=== PATIENT | female | born 1970 | race Hispanic/Latino ===

== ENCOUNTER 2019-03-22 14:18 | Emergency (ER) | payer SELFPAY ==
[~2019-03-22] VITALS: Ht 154.9 cm; Wt 74.8 kg
--- OUTSIDE RECORDS SUMMARY | 2019-03-22 14:21 | XMS REPORT ---
Author [facility] Address Unknown Phone Unavailable Care Team Providers Care Psychologist Engineering Name Role Phone Unavailable Unavailable Problems This patient has no known problems. Allergies, Adverse Reactions, Alerts This patient has no known allergies or adverse reactions. Medications This patient has no known medications. Encounters Start Date/Time End Date/Time Encounter Type Admission Type Attending [facility] Care Department Encounter ID 2019-05-24 00:00:00 2019-05-24 00:00:00 Outpatient [facility] [id number] 2019-03-30 00:00:00 2019-03-30 00:00:00 Outpatient [facility] [id number] 2019-03-13 08:36:25 2019-03-13 08:36:25 Outpatient [facility] [id number] 2019-03-10 08:43:32 2019-03-10 08:43:32 Outpatient [facility] [id number] 2019-03-01 00:00:00 2019-03-01 00:00:00 Outpatient [facility] [id number] 2019-02-22 10:33:56 2019-02-22 10:33:56 Outpatient [facility] [id number] 2019-02-07 14:05:38 2019-02-07 14:05:38 Outpatient [facility] [id number] 2019-02-06 00:00:00 2019-02-06 00:00:00 Outpatient [facility] [id number] 2019-01-25 15:25:58 2019-01-25 15:25:58 Outpatient [facility] [id number] 2019-01-25 15:10:43 2019-01-25 15:10:43 Outpatient [facility] [id number] 2019-01-20 09:47:44 2019-01-20 09:47:44 Outpatient [facility] [id number] 2019-01-12 08:57:26 2019-01-12 08:57:26 Outpatient [facility] [id number] 2019-01-12 08:37:39 2019-01-12 08:37:39 Outpatient [facility] [id number] 2019-01-12 08:08:00 2019-01-12 08:08:00 Outpatient [facility] [id number] 2019-01-12 07:47:13 2019-01-12 07:47:13 Outpatient [facility] [id number] 2019-01-11 10:16:53 2019-01-11 10:16:53 Outpatient [facility] [id number] 2018-12-23 09:33:28 2018-12-23 09:33:28 Outpatient [facility] [id number] 2018-12-15 09:46:03 2018-12-15 09:46:03 Outpatient [facility] [id number] 2018-11-28 08:27:12 2018-11-28 08:27:12 Outpatient [facility] [id number] 2018-11-28 07:33:17 2018-11-28 07:33:17 Outpatient [facility] [id number] 2018-11-07 09:20:20 2018-11-07 09:20:20 Outpatient [facility] [id number] 2018-11-07 00:00:00 2018-11-07 00:00:00 Outpatient [facility] [id number] 2018-10-28 09:40:39 2018-10-28 09:40:39 Outpatient [facility] [id number] 2018-10-25 12:53:28 2018-10-25 12:53:28 Outpatient [facility] [id number] 2018-10-21 10:38:14 2018-10-21 10:38:14 Outpatient [facility] [id number] 2018-10-21 00:00:00 2018-10-21 00:00:00 Outpatient [facility] [id number] 2018-10-20 22:58:17 2018-10-20 22:58:17 Outpatient [facility] [id number] 2018-10-20 20:09:35 2018-10-20 20:09:35 Emergency [facility] [id number] 2018-10-20 13:19:56 2018-10-20 13:19:56 Outpatient [facility] [id number] 2018-06-13 23:41:23 2018-06-13 23:41:23 Emergency [facility] [id number]
--- OUTSIDE RECORDS SUMMARY | 2019-03-22 14:21 | XMS REPORT ---
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 Conditions or Problems Problem Name Problem Code Onset Date Status Entry Date Provider Comment Standard Description Annotate Otalgia 388.70 Active Estevan Lara MD Otalgia, unspecified Hypertension, essential, uncontrolled 401.9 Active Estevan Lara MD Unspecified essential hypertension Lipoma 214.9 Active Estevan Lara MD Lipoma, unspecified site Obesity Active Hue May MD Obesity, unspecified Vaginal discharge 623.5 Active Hue May MD Leukorrhea, not specified as infective Vaginal itching 698.1 Active Hue May MD Pruritus of genital organs Otitis externa 380.10 Active Estevan Lara MD Infective otitis externa, unspecified Elevated blood pressure ICD-796.2 Inactive Estevan Lara MD Essential hypertension ICD-401.1 Inactive Estevan Lara MD Elevated blood pressure 796.2 Resolved Estevan Lara MD Elevated blood pressure reading without diagnosis of hypertension Essential hypertension 401.1 Resolved Estevan Lara MD Benign essential hypertension Medication List Medication Instructions Start Date Stop Date Generic Name NDC Status Provider Patient Instruction BIO-STATIN ORAL POWDER apply to the vulva an dmons 2-3 times a day for 1 week and repeat if necessary NYSTATIN 97787905281 Active Linda Mitchell MD Active HYDROCHLOROTHIAZIDE 25 MG ORAL TABLET 1 by mouth every day HYDROCHLOROTHIAZIDE 39185980702 Active Estevan Lara MD Active AMLODIPINE BESYLATE 10 MG ORAL TABLET 1 tab by mouth daily AMLODIPINE BESYLATE 33628339010 Active Estevan Lara MD Active LISINOPRIL 40 MG ORAL TABLET 1 by mouth every day LISINOPRIL 21179408084 Active Estevan Lara MD Active DIFLUCAN 150 MG ORAL TABLET 1 po x 1 dose then repeat in 7 days, then repeat again in 14 days FLUCONAZOLE 77419298575 Active Linda Mitchell MD Active ATENOLOL 100 MG ORAL TABLET 1 by mouth every day ATENOLOL 30192254583 Active Estevan Lara MD Active CORTISPORIN 3.5-35524-6 OTIC SOLUTION 4 drops in affected ear QID [id number] Active Estevan Lara MD Active Vital Signs Date Name Value Unit Range Description blood pressure, diastolic, second observation 82 mm[Hg] BP tang blood pressure, diastolic 82 mm[Hg] BP tang blood pressure, systolic, second observation 182 mm[Hg] BP sys blood pressure, systolic 169 mm[Hg] BP sys height E&M 64 [in_us] Bdy height pulse rate E&M 83 /min Heart rate respiratory rate E&M 18 /min Resp rate temperature E&M 98.2 [degF] Body temperature weight E&M 181.13 [lb_av] Weight Measured blood pressure, diastolic, second observation 107 mm[Hg] BP tang blood pressure, diastolic 105 mm[Hg] BP tang blood pressure, systolic, second observation 171 mm[Hg] BP sys blood pressure, systolic 177 mm[Hg] BP sys height E&M 64 [in_us] Bdy height pulse rate E&M 97 /min Heart rate respiratory rate E&M 18 /min Resp rate temperature E&M 98.0 [degF] Body temperature weight E&M 180.38 [lb_av] Weight Measured blood pressure, diastolic 96 mm[Hg] BP tang blood pressure, systolic 196 mm[Hg] BP sys height E&M 64 [in_us] Bdy height pulse rate E&M 74 /min Heart rate respiratory rate E&M 17 /min Resp rate temperature E&M 97.9 [degF] Body temperature weight E&M 180.38 [lb_av] Weight Measured blood pressure, diastolic 84 mm[Hg] BP tang blood pressure, systolic 168 mm[Hg] BP sys height E&M 64 [in_us] Bdy height pulse rate E&M 98 /min Heart rate respiratory rate E&M 18 /min Resp rate temperature E&M 98.1 [degF] Body temperature weight E&M 182 [lb_av] Weight Measured blood pressure, diastolic 87 mm[Hg] BP tang blood pressure, systolic 155 mm[Hg] BP sys height E&M 64 [in_us] Bdy height pulse rate E&M 72 /min Heart rate respiratory rate E&M 18 /min Resp rate temperature E&M 98.4 [degF] Body temperature weight E&M 181.38 [lb_av] Weight Measured blood pressure, diastolic 88 mm[Hg] BP tang blood pressure, systolic 163 mm[Hg] BP sys height E&M 64 [in_us] Bdy height pulse rate E&M 84 /min Heart rate respiratory rate E&M 18 /min Resp rate temperature E&M 98.4 [degF] Body temperature weight E&M 180.13 [lb_av] Weight Measured blood pressure, diastolic 80 mm[Hg] BP tang blood pressure, systolic 156 mm[Hg] BP sys height E&M 64 [in_us] Bdy height pulse rate E&M 77 /min Heart rate respiratory rate E&M 17 /min Resp rate temperature E&M 98.2 [degF] Body temperature weight E&M 182.13 [lb_av] Weight Measured blood pressure, diastolic 115 mm[Hg] BP tang blood pressure, systolic 198 mm[Hg] BP sys height E&M 64 [in_us] Bdy height pulse rate E&M 95 /min Heart rate respiratory rate E&M 18 /min Resp rate temperature E&M 98.4 [degF] Body temperature weight E&M 180.38 [lb_av] Weight Measured Diagnostic Results Date Name Value Unit Range Description Lab Report: Vaginitis/Vaginosis, DNA Probe - Urinalysis trichomonas vaginalis, urine Negative Negative Lab Report: Vaginitis/Vaginosis, DNA Probe, Ct, Ng, Trich vag by SABINO - Microbiology Neisseria gonorrhoeae DNA probe Negative Negative Lab Report: Vaginitis/Vaginosis, DNA Probe, Ct, Ng, Trich vag by SABINO - Lab chlamydia DNA probe Negative Negative Encounters Date Encounter Provider Code Facility 10:30:45 PERSONAL ASSISTANT Est Patient Exp Problem - 28898 Estevan Lara MD CPT-12697 [facility] 16:43:39 PERSONAL ASSISTANT Est Patient Exp Problem - 54821 Estevan Lara MD CPT-33023 [facility] 15:15:15 PERSONAL ASSISTANT Est Patient Exp Problem - 03141 Linda Mitchell MD CPT-45032 [facility] 10:45:30 CDT Est Patient Exp Problem - 45394 Estevan Lara MD CPT-18861 [facility] 11:01:16 CDT Est Patient Exp Problem - 77406 Estevan Lara MD CPT-12148 [facility] 11:58:55 CDT Est Patient Exp Problem - 64440 Estevan Lara MD CPT-10825 [facility] 15:29:45 CDT Est Patient Problem Focus - 31465 Hue May MD CPT-86576 [facility] 14:52:19 CDT New Patient Detailed - 17419 Estevan Lara MD CPT-75453 [facility]
--- OUTSIDE RECORDS SUMMARY | 2019-03-22 14:21 | XMS REPORT | Clinical Summary ---
Author Author [facility] Organization [facility] Address Unknown Phone Unavailable Care Team Providers Care Insurance Service Representative Name Role Phone Fransisco Jackson MD PCP Allergies No Known Allergies Medications End Date Status Medication Sig Dispensed Refills Start Date Active NEXIUM 40 MG take 1 30 2 CAPIndications: Acid capsule 7 reflux, Abdominal pain, (40mg) by epigastric oral route once daily Active metoclopramide (REGLAN) Take 1 tablet 120 tablet 0 10 mg tabletIndications: by mouth 4 2 Headache(784.0) times daily as needed (headache). Active blood glucose Use as 1 Kit 0 meterIndications: Chest directed.. 8 pain in adult Active lancets 28 Use 2 times 100 Each 1 gaugeIndications: Chest weekly as 8 pain in adult directed. Active blood glucose test 2 times 50 Each 3 stripsIndications: Chest weekly Use 2 8 pain in adult times weekly (once per day on Mon,Thurs) to test blood sugar. Active atorvastatin (LIPITOR) 10 Take 1 tablet 90 tablet 3 mg tabletIndications: by mouth at 8 Chest pain in adult bedtime nightly. Active metFORMIN (GLUCOPHAGE) Take 1 tablet 180 tablet 3 1,000 mg by mouth 2 8 tabletIndications: Type 2 times daily diabetes mellitus with (with meals). complication, without long-term current use of insulin Active metoprolol tartrate Take 1 tablet 180 tablet 1 (LOPRESSOR) 25 mg by mouth 2 9 tabletIndications: times daily. Essential hypertension, benign Active lisinopril (ZESTRIL) 40 Take 1 tablet 90 tablet 1 mg tabletIndications: by mouth 9 Essential hypertension, daily. benign Active fenofibrate Take 1 tablet 90 tablet 1 nanocrystallized (TRICOR) by mouth 9 48 mg tabletIndications: daily. Dyslipidemia Active pioglitazone (ACTOS) 45 Take 1 tablet 90 tablet 1 mg tabletIndications: by mouth 9 Uncontrolled type 2 daily. diabetes mellitus with hyperglycemia Active verapamil (CALAN) 80 mg Take 1 tablet 90 tablet 0 tabletIndications: by mouth 3 9 Chronic cluster headache, times daily. not intractable Active SUMAtriptan (IMITREX) 20 Use 1 Bradley 12 Each 0 mg/actuation nasal in left 9 sprayIndications: Chronic nostril as cluster headache, not needed for intractable Migraine May repeat x 1 dose after 2 hours if migraine persists; not to exceed 2 sprays in 24 hours.. 06/14/2018 Discontinued acetaminophen-codeine Take 1 tablet 0 (TYLENOL #3) 300-30 mg by mouth per tablet every 4 hours as needed. 01/11/2019 Discontinued metoprolol (TOPROL XL) 50 Take 50 mg by 0 mg extended release mouth daily. tablet 06/24/2018 amoxicillin-clavulanate Take 1 tablet 20 tablet 0 (AUGMENTIN) 500-125 mg by mouth 8 per tabletIndications: every 12 Left ear pain hours for 10 days. 06/24/2018 traMADol (ULTRAM) 50 mg Take 1 tablet 30 tablet 0 tabletIndications: Left by mouth 8 ear pain every 8 hours as needed for up to 10 days for Pain. 11/07/2018 Discontinued lisinopril (ZESTRIL) 40 Take 1 tablet 90 tablet 0 mg tabletIndications: by mouth 8 Chest pain in adult daily. 11/07/2018 Discontinued amLODIPine (NORVASC) 10 Take 1 tablet 90 tablet 0 mg tabletIndications: by mouth 8 Chest pain in adult daily. 11/07/2018 Discontinued atorvastatin (LIPITOR) 10 Take 1 tablet 90 tablet 0 201 mg tabletIndications: by mouth at 8 Chest pain in adult bedtime nightly. 01/11/2019 Discontinued amLODIPine (NORVASC) 10 Take 1 tablet 90 tablet 3 mg tabletIndications: by mouth 8 Chest pain in adult daily. 11/28/2018 Discontinued lisinopril (ZESTRIL) 40 Take 1.5 135 tablet 3 11/07/201 mg tabletIndications: tablets by 8 Hypertension, unspecified mouth daily. type 01/11/2019 Discontinued lisinopril (ZESTRIL) 40 Take 2 180 tablet 3 201 mg tabletIndications: tablets by 9 Hypertension, unspecified mouth daily. type 01/25/2019 Discontinued amLODIPine (NORVASC) 10 Take 1 tablet 90 tablet 1 mg tabletIndications: by mouth 9 Essential hypertension, daily. benign 01/11/2019 tropicamide (MYDRIACYL) Instill 1 15 mL 0 0.5 % ophthalmic Drop in each 9 solutionIndications: eye once as Uncontrolled type 2 needed for up diabetes mellitus with to 1 dose hyperglycemia (for poor retina scan image). 01/25/2019 Discontinued carBAMazepine (TEGRETOL) Take 1 tablet 120 tablet 0 200 mg tabletIndications: by mouth 2 9 Neuralgic facial pain times daily. 01/30/2019 predniSONE (DELTASONE) 50 Take 1 tablet 5 tablet 0 01/25/201 mg tabletIndications: by mouth 9 Chronic cluster headache, daily for 5 not intractable days. 01/27/2019 Discontinued SUMAtriptan (IMITREX) 20 Use 1 Bradley 12 Each 0 01/25/201 mg/actuation nasal in left 9 sprayIndications: Chronic nostril as cluster headache, not needed for intractable Migraine. Active Problems Problem Noted Date Weight loss 05/15/2015 Chest pain 09/17/2012 Headache(784.0) 09/17/2012 Hypertension 09/17/2012 Acid reflux 02/16/2007 Periumbilical abdominal pain 02/16/2007 Left ear pain Middle ear effusion, left Left facial pain SOB (shortness of breath) Type 2 diabetes mellitus without complication, without long-term current use of insulin Hyperlipidemia Resolved Problems Problem Noted Date Resolved Date Chest pain in adult 10/20/2018 11/07/2018 Encounters Care Team Description Date Type Specialty Fransisco Jackson MD Uncontrolled type 2 diabetes mellitus with hyperglycemia; Dyslipidemia 03/13/2019 Lab Appointment Aníbal Dash RN Disease Management F/U 03/13/2019 Telephone Patient Education SilberTre jamil MD Lassinger, Brian K, PA Mass of subcutaneous tissue of back (Primary Dx) 03/10/2019 Office Visit General Surgery Alannah Hess NP Type 2 diabetes mellitus with complication, without long- term current use of insulin (Primary Dx); HTN, goal below 130/80; Hyperlipidemia, unspecified hyperlipidemia type; Chest pain, unspecified type; Cluster headache, not intractable, unspecified chronicity pattern 02/22/2019 Office Visit Cardiology Elizabeth Jenkins Interpretation 02/22/2019 Telephone 02/22/2019 Travel Amadou Lofton MD Neuralgia (Primary Dx) 02/07/2019 Office Visit Ent-Otolaryngology Lucinda Brady NP Chronic cluster headache, not intractable 01/27/2019 Orders Only [facility] Fransisco Jackson MD Chronic cluster headache, not intractable (Primary Dx); Hypertension, uncontrolled 01/25/2019 Office Visit [facility] Fransisco Jackson MD Maldonado, Selena Renee 01/25/2019 Nurse Only Fransisco Jackson MD Prideaux, Melissa 01/20/2019 Nutrition Nutrition 01/20/2019 Travel Aníbal Matt RN 01/16/2019 Patient Patient Education Education Fransisco Jackson MD Uncontrolled type 2 diabetes mellitus with hyperglycemia 01/12/2019 Ancillary Ophthalmology Procedure Fransisco Jackson MD Chronic TMJ pain 01/12/2019 Ancillary Radiology Procedure Fransisco Jackson MD Preventative health care 01/12/2019 Ancillary Radiology Procedure Aníbal Matt, internet cafe manager F/U 01/12/2019 Telephone Patient Education Fransisco Jackson MD Uncontrolled type 2 diabetes mellitus with hyperglycemia (Primary Dx); Preventative health care; Dyslipidemia; Chronic TMJ pain; Essential hypertension, benign; Neuralgic facial pain 01/11/2019 Office Visit Family Practice Fransisco Jackson MD Uncontrolled type 2 diabetes mellitus with hyperglycemia 01/11/2019 Orders Only [facility] Tre Haines MD Lassinger, Brian K, PA Mass of subcutaneous tissue of back (Primary Dx) 12/23/2018 Office Visit General Surgery 12/23/2018 Travel Mass of subcutaneous tissue of back 12/15/2018 Ancillary Radiology Procedure 12/15/2018 Travel Alannah Hess NP Chest pain, unspecified type (Primary Dx); SOB (shortness of breath); Hypertension, unspecified type; Hyperlipidemia, unspecified hyperlipidemia type; Type 2 diabetes mellitus with complication, without long-term current use of insulin 11/28/2018 Office Visit Cardiology Alannah Hess NP Matthew Whitingila 11/28/2018 Hospital Cardiology Encounter Aníbal Matt RN Appointment Related Questions 11/23/2018 Telephone Patient Education Nydia Felix RNinternet cafe manager F/U 11/17/2018 Telephone Patient Education Alannah Hess NP Chest pain, unspecified type (Primary Dx); SOB (shortness of breath); Hypertension, unspecified type; Hyperlipidemia, unspecified hyperlipidemia type; Type 2 diabetes mellitus with complication, without long-term current use of insulin; Chest pain in adult 11/07/2018 Office Visit Cardiology Ben Trinh Interpretation 11/07/2018 Telephone Tre Haines MD Lassinger, Brian K, PA Mass of subcutaneous tissue of back (Primary Dx) 10/28/2018 Office Visit General Surgery 10/28/2018 Travel Darrel Chauhan MD Appling, Walter D, MD TMJ (temporomandibular joint disorder) (Primary Dx) 10/25/2018 Office Visit Ent-Otolaryngology 10/25/2018 Travel Armand Whitten I Interpretation 10/21/2018 Telephone David Holguin MD Chest pain in adult (Primary Dx) 10/20/2018 Emergency Emergency Medicine - 10/21/2018 Amadou Lofton MD Hypertension, unspecified type (Primary Dx) 10/20/2018 Office Visit Ent-Otolaryngology Randell Jalloh MD Left ear pain (Primary Dx); Middle ear effusion, left; Left facial pain 06/13/2018 Emergency Emergency Medicine - 06/14/2018 after 03/21/2018 Family History Medical History Relation Name Comments Hypertension Mother Relation Name Status Comments Father Alive Mother Alive Social History Date Tobacco Use Types Packs/Day Years Used Never Smoker Smokeless Tobacco: Never Used Tobacco Cessation: Counseling Given: No Alcohol Use Drinks/Week oz/Week Comments No Sex Assigned at Date Recorded Not on file Industry Job Start Date Occupation Not on file Not on file Not on file Travel End Travel History Travel Start No recent travel history available. Last Filed Vital Signs Time Taken Vital Sign Reading 03/10/2019 8:44 AM CDT Blood Pressure 156/81 03/10/2019 8:44 AM CDT Pulse 86 03/10/2019 8:44 AM CDT Temperature 37 C (98.6 F) 03/10/2019 8:44 AM CDT Respiratory Rate 18 02/22/2019 10:35 AM CDT Oxygen Saturation 98% - Inhaled Oxygen - Concentration 03/10/2019 8:44 AM CDT Weight 81.2 kg (179 lb) 03/10/2019 8:44 AM CDT Height 160 cm (5' 3") 03/10/2019 8:44 AM CDT Body Mass Index 31.71 Plan of Treatment Care Team Description Date Type Specialty Fransisco Jackson MD [address] [place] [address] [place] [id number] [phone] results 03/30/2019 Office Visit Family Practice Alannah Hess, [employer] [address] [place] [address] [phone] 05/24/2019 Office Visit Cardiology Health Maintenance Due Date Last Done Comments IMM Influenza Seasonal 08/22/2019 Oct to January (>/=19 yrs) DM Foot Exam (Yearly) 01/11/2020 01/11/2019 Breast Cancer Scrn 01/12/2020 01/12/2019 (Yearly) DM Retinal Exam (Yearly) 01/12/2020 01/12/2019 DM HGBA1C (Yearly) 03/13/2020 03/13/2019, 10/21/2018 Cervical Cancer Scrn (3 01/05/2021 01/05/2018 (Previously completed - Yrs) External) Goals Goal Patient Associated Recent Progress Patient-Stat Author Goal Type Problems ed? Increase Physical Activity Lifestyle No Aníbal Matt, MAX Home Glucose Monitoring Self No Fransisco Jackson, management HBA1C < 7 Treatment No Fransisco Jackson MD Procedures Comments Procedure Name Priority Date/Time Associated Diagnosis VIT D, 25-HYDROXY Routine 03/13/2019 Uncontrolled type 2 8:28 AM CDT diabetes mellitus with hyperglycemia LIPID PROFILE Routine 03/13/2019 Uncontrolled type 2 8:28 AM CDT diabetes mellitus with hyperglycemia Dyslipidemia HEMOGLOBIN A1C Routine 03/13/2019 Uncontrolled type 2 8:28 AM CDT diabetes mellitus with hyperglycemia COMPREHENSIVE METABOLIC Routine 03/13/2019 Uncontrolled type 2 PANEL(DBIL NOT INCLUDED) 8:28 AM CDT diabetes mellitus with hyperglycemia CBC/DIFF Routine 03/13/2019 Uncontrolled type 2 8:28 AM CDT diabetes mellitus with hyperglycemia OXYGEN THERAPY IN CLINIC Routine 01/25/2019 Chronic cluster headache, 3:59 PM BIOMATHEMATICIAN not intractable OPHTHALMOLOGY RETINAL Routine 01/12/2019 Uncontrolled type 2 SCAN 10:07 AM BIOMATHEMATICIAN diabetes mellitus with hyperglycemia BMP POC Routine 01/12/2019 9:16 AM BIOMATHEMATICIAN XRAY TEMPORALMANDIBULAR Routine 01/12/2019 Chronic TMJ pain BILATERAL 8:28 AM BIOMATHEMATICIAN MAMMOGRAM BILAT SCREEN Routine 01/12/2019 health care DIGITAL 8:20 AM BIOMATHEMATICIAN MICROALBUM, URINE Routine 01/12/2019 Uncontrolled type 2 7:52 AM BIOMATHEMATICIAN diabetes mellitus with hyperglycemia DIABETIC FOOT EXAM Routine 01/11/2019 Uncontrolled type 2 11:36 AM BIOMATHEMATICIAN diabetes mellitus with hyperglycemia U/S EXTREMITY Routine 12/15/2018 Mass of subcutaneous NONVASCULAR, LIMITED 11:38 AM BIOMATHEMATICIAN tissue of back TRANSTHORACIC ECHO (TTE) Routine 11/28/2018 Chest pain, unspecified 7:38 AM BIOMATHEMATICIAN type SOB (shortness of breath) MYOCARDIAL PERFUSION Routine 10/21/2018 SPECT REST/STRES SINGLE 1:20 PM BIOMATHEMATICIAN TREADMILL STRESS-TRACING 10/21/2018 ONLY 11:18 AM BIOMATHEMATICIAN POCT URINE DIPSTICK - Routine 10/21/2018 10:14 AM BIOMATHEMATICIAN TSH Routine 10/21/2018 9:45 AM BIOMATHEMATICIAN GLUCOSE POC Routine 10/21/2018 9:25 AM BIOMATHEMATICIAN LIPID PROFILE STAT 10/21/2018 12:41 AM BIOMATHEMATICIAN LIVER PROFILE STAT 10/21/2018 12:41 AM BIOMATHEMATICIAN HEMOGLOBIN A1C STAT 10/21/2018 12:41 AM BIOMATHEMATICIAN XRAY CHEST 2 VIEWS STAT 10/20/2018 Chest pain in adult 8:13 PM BIOMATHEMATICIAN TROPONIN I POC Routine 10/20/2018 7:46 PM BIOMATHEMATICIAN 12 LEAD EKG Routine 10/20/2018 7:42 PM BIOMATHEMATICIAN 12 LEAD EKG Routine 10/20/2018 5:03 PM BIOMATHEMATICIAN TROPONIN I POC Routine 10/20/2018 5:02 PM BIOMATHEMATICIAN HIV-1/HIV-2 ROUTINE STAT 10/20/2018 SCREENING 2:30 PM BIOMATHEMATICIAN CBC/DIFF STAT 10/20/2018 2:30 PM BIOMATHEMATICIAN BMP POC Routine 10/20/2018 2:25 PM BIOMATHEMATICIAN TROPONIN I POC Routine 10/20/2018 2:22 PM BIOMATHEMATICIAN 12 LEAD EKG Routine 10/20/2018 2:08 PM BIOMATHEMATICIAN after 03/21/2018 Results * VIT D, 25-HYDROXY (03/13/2019 8:28 AM CDT) Vit D, 10.3 (L) 30 - 100 ng/mL [facility] 25-Hydroxy Comment: IMMUNOLOGY Vitamin D deficiency has been defined by the [place] [employer] and Endocrine Society guideline as a level of serum 25-OH Vitamin D less than 20 ng/mL. The Endocrine Society further defines Vitamin D insufficiency as a level between 21 and 29 ng/mL and sufficiency as a level between 30 and 100 ng/mL. Performing Organization Address City/State/Zipcode Phone Number [facility] IMMUNOLOGY * HEMOGLOBIN A1C (03/13/2019 8:28 AM CDT) Only the most recent of 2 results within the time period is included. Hemoglobin A1c 12.3 (H) 4.3 - 6.1 % [facility] IMMUNOLOGY Est Average 306.3 mg/dL [facility] Gluc IMMUNOLOGY Specimen Blood Performing Organization Address [facility] Phone Number [facility] IMMUNOLOGY * COMPREHENSIVE METABOLIC PANEL(DBIL NOT INCLUDED) (03/13/2019 8:28 AM CDT) Albumin 4.1 3.7 - 5.3 g/dL [facility] 1 Calcium 9.1 8.6 - 10.3 mg/dL [facility] 1 CO2 27 21 - 31 mmol/L [facility] 1 Chloride 101 98 - 107 mmol/L [facility] 1 Creatinine 0.40 (L) 0.6 - 1.2 mg/dL [facility] 1 Glucose 297 (H) 70 - 110 mg/dL [facility] 1 Alk Phos 122 (H) 34 - 104 U/L [facility] 1 Potassium 4.2 3.5 - 5.1 mmol/L [facility] 1 Sodium 137 136 - 145 mmol/L [facility] 1 ALT 22 7 - 52 U/L [facility] 1 AST 13 13 - 39 U/L [facility] 1 Urea Nitrogen 13 7 - 25 mg/dL [facility] 1 T Bilirubin 0.9 0.2 - 1.2 mg/dL [facility] 1 T Protein 6.6 6.0 - 8.3 g/dL [facility] 1 GFR, Estimated >60 mL/min/1.73 m2 [facility] 1 GFR, Estim, >60 mL/min/1.73 m2 [facility] Afr-Am 1 Anion Gap 9 [facility] 1 Specimen Blood Performing Organization Address [facility] Phone Number [facility] * LIPID PROFILE (03/13/2019 8:28 AM CDT) Only the most recent of 2 results within the time period is included. Cholesterol 251 mg/dL [facility] Comment: 1 REFERENCE RANGE: Desirable: <200 mg/dL Borderline: 200-240 mg/dL High Risk: >240 mg/dL Triglyceride 132 <150 mg/dL [facility] Comment: 1 REFERENCE RANGE: Normal: <150 mg/dL Borderline High: 150-199 mg/dL High: 200-499 mg/dL Very High: >yv=182 mg/dL HDL 48 mg/dL [facility] Comment: 1 Increased CHD risk: <40 mg/dL Decreased CHD risk: >60 mg/dL LDL 177 mg/dL [facility] Comment: 1 REFERENCE RANGE: Optimal: <100 mg/dL Near Optimal: 100-129 mg/dL Borderline High: 130-159 mg/dL High: 160-189 mg/dL Very High: >he=942 mg/dL Specimen Blood Performing Organization Address City/State/Zipcode Phone Number [facility] * CBC/DIFF (03/13/2019 8:28 AM CDT) Only the most recent of 2 results within the time period is included. WBC 4.9 4.5 - 11.0 K/uL [facility] 2 RBC 4.88 4.20 - 5.40 M/uL [facility] 2 Hemoglobin 14.3 12.0 - 16.0 g/dL [facility] 2 Hematocrit 44.8 37.0 - 47.0 % [facility] 2 MCV 92 82 - 92 fL [facility] 2 MCH 29.3 27.0 - 32.0 pg [facility] 2 MCHC 31.9 (L) 32.0 - 36.0 g/dL [facility] 2 RDW 42.2 36.4 - 46.3 fL [facility] 2 Platelet 219 150 - 400 K/uL [facility] 2 Mean Platelet 11.8 9.4 - 12.4 fL [facility] Volume 2 Percent NRBC 0.0 [facility] 2 Absolute NRBC 0.00 [facility] 2 Neutrophil 55.2 34.0 - 70.0 % [facility] 2 Lymphocyte 36.5 20.0 - 50.0 % [facility] 2 Monocyte 5.7 5.0 - 12.0 % [facility] 2 Eosinophil 1.4 0.7 - 5.0 % [facility] 2 Basophil 0.4 0.1 - 1.2 % [facility] 2 Pct Immat Gran 0.8 (H) 0.0 - 0.5 [facility] 2 Neutrophil, Abs 2.69 1.56 - 6.13 K/uL [facility] 2 Lymphocyte, Abs 1.78 1.18 - 3.74 K/uL [facility] 2 Monocyte, Abs 0.28 0.24 - 0.36 K/uL [facility] 2 Eosinophil, Abs 0.07 0.04 - 0.36 K/uL [facility] 2 Basophil, Abs 0.02 0.01 - 0.08 K/uL [facility] 2 Absol Immat 0.04 (H) 0.00 - 0.03 K/uL [facility] Gran 2 Specimen Blood Performing Organization Address City/[facility] Phone [facility] * OPHTHALMOLOGY RETINAL SCAN (01/12/2019 10:07 AM BIOMATHEMATICIAN) RETINAL NORMAL IRIS SCAN-FINAL RESULT Right Diabetic None IRIS Retinopathy Right Macular None IRIS Edema Right Other None IRIS Suspected Conditions Right Image Gradeable Image IRIS Quality Left Diabetic None IRIS Retinopathy Left Macular None IRIS Edema Left Other None IRIS Suspected Conditions Left Image Gradeable Image IRIS Quality Narrative Performed At Retinal Study Result for MARK REDD MARIA, agnieszka age not available, 1970 (: F, ) presented to [facility] on 01-12-2019 for a retinal imaging study of the left and right eyes. Based on the findings of the study, the following is recommended for MARK REDD Normal Scan: Please advise the patient to return for another scan in 1 year. Interpreting Provider's Comments:No comments provided Right Eye Findings: Normal Result.Negative for Diabetic Retinopathy. Left Eye Findings: Normal Result.Negative for Diabetic Retinopathy. This result was electronically signed by Ryan Arias MD, , Taxonomy: [id number] on 01-12-2019 04:07:18 [facility] time. NOTE:Any pathology noted on this diabetic retinal evaluation should be confirmed by an appropriate ophthalmic examination. Performing Organization Address City/[facility] Phone Number IRIS * BMP POC (01/12/2019 9:16 AM BIOMATHEMATICIAN) TCO2 POC 23 21 - 32 mmol/L [facility] Chloride POC 104 98 - 107 mmol/L [facility] Potassium POC 3.9 3.50 - 5.10 mmol/L [facility] Sodium POC 140 136 - 145 mmol/L [facility] Glucose POC 398 (H) 74 - 106 mg/dL [facility] Urea Nitrogen 15 7 - 18 mg/dL [facility] POC Creatinine POC 0.4 (L) 0.6 - 1.3 mg/dL [facility] Ionized Calcium 1.20 1.15 - 1.29 mmol/L [facility] POC GFR, Estimated >60 mL/min/1.73 m2 [facility] GFR, Estim, >60 mL/min/1.73 m2 [facility] Afr-Am Performing Organization Address [facility] Phone Number [facility] * XRAY TEMPORALMANDIBULAR BILATERAL (01/12/2019 8:28 AM BIOMATHEMATICIAN) Impressions Performed At IMPRESSION: SMS No acute osseous lesion. Greater subluxation during open mouth imaging than expected Signed By: Dominik Ledesma MD, 01/12/2019 8:42 AM Narrative Performed At Temporal mandibular joint SMS HISTORY:lt TMJ pain COMPARISON: None DISCUSSION: No fracture or malalignment. No TMJ arthrosis. Greater subluxation during open mouth imaging than expected. The visualized soft tissues appear unremarkable. Procedure Note Interface, Rad/Mammog In - 01/12/2019 8:47 AM BIOMATHEMATICIAN Temporal mandibular joint HISTORY: lt TMJ pain COMPARISON: None DISCUSSION: No fracture or malalignment. No TMJ arthrosis. Greater subluxation during open mouth imaging than expected. The visualized soft tissues appear unremarkable. IMPRESSION IMPRESSION: No acute osseous lesion. Greater subluxation during open mouth imaging than expected Signed By: Dominik Ledesma MD, 01/12/2019 8:42 AM Performing Organization Address [facility] Phone Number SMS * MAMMOGRAM BILAT SCREEN DIGITAL (01/12/2019 8:20 AM BIOMATHEMATICIAN) Impressions Performed At IMPRESSION: BENIGN SMS There is no mammographic evidence of malignancy. A 1 year screening mammogram is recommended. I have reviewed the study and agree with the findings in the report. This document has been electronically signed. Radha albrecht,daya/penrad:01/12/2019 09:31:00 Finishing Pan Operator: Sang Childs Sr. Account Solutions Analyst, [facility] letter sent: Benign Exam Mammogram BI-RADS: 2 Benign G0202 z12.31 Narrative Performed At #[id number] - MAMMOGRAM BILAT SCREEN DIGITAL SMS BILATERAL DIGITAL SCREENING MAMMOGRAM WITH CAD: 01/12/2019 CLINICAL: Screening for malignancy. No prior exams were available for comparison. There are scattered fibroglandular elements in both breasts that could obscure a lesion on mammography. Current study was also evaluated with a Computer Aided Detection (CAD) system. There are benign calcifications in both breasts. No significant masses, calcifications, or other findings are seen in either breast. Procedure Note Interface, Rad/Mammog In - 01/12/2019 9:58 AM BIOMATHEMATICIAN #[id number] - MAMMOGRAM BILAT SCREEN DIGITAL BILATERAL DIGITAL SCREENING MAMMOGRAM WITH CAD: 01/12/2019 CLINICAL: Screening for malignancy. No prior exams were available for comparison. There are scattered fibroglandular elements in both breasts that could obscure a lesion on mammography. Current study was also evaluated with a Computer Aided Detection (CAD) system. There are benign calcifications in both breasts. No significant masses, calcifications, or other findings are seen in either breast. IMPRESSION IMPRESSION: BENIGN There is no mammographic evidence of malignancy. A 1 year screening mammogram is recommended. I have reviewed the study and agree with the findings in the report. This document has been electronically signed. Radha albrecht,/penrad:01/12/2019 09:31:00 Finishing Pan Operator: Sang Childs Sr. Account Solutions Analyst, [facility] letter sent: Benign Exam Mammogram BI-RADS: 2 Benign G0202 z12.31 Performing Organization Address City/State[facility] Phone Number SMS * MICROALBUM, URINE (01/12/2019 7:52 AM BIOMATHEMATICIAN) Microalbum, <0.7 0.0 - 29.0 mg/dL [facility] Random 1 Creatinine, Ur 25.7 20 - 320 mg/dL [facility] 1 Urine Unable to calculate, 0 - 29 mg/g UCR [facility] Microalbumin parameters incomplete 3 Comment: To minimize intra-individual variation, analysis of three random urine samples collected over the course of a week is recommended. Performing Organization Address City/State[facility] Phone Number [facility] 1 [facility] 3 * DIABETIC FOOT EXAM (01/11/2019 11:36 AM BIOMATHEMATICIAN) Narrative Performed At Fransisco Jackson MD 01/11/2019 11:42 AM Diabetic Foot Exam was performed at 01/11/2019 11:40 AM.Right foot sensation is normal, right foot pulses are normal, right foot appearance is normal.Left foot sensation is normal,left foot pulses are normal, left foot appearance is normal. * U/S EXTREMITY NONVASCULAR, LIMITED (12/15/2018 11:38 AM BIOMATHEMATICIAN) Impressions Performed At IMPRESSION: SMS Subcutaneous lipoma or focal fat infarction in the area of clinical concern. Signed By: Taylor Larkin, 12/15/2018 11:41 AM Narrative Performed At HISTORY: subcutaneous mass on the left lateral back/flank located a few SMS cm's inferior to her incisional scar in that same area TECHNIQUE: Directed sonographic interrogation to the left lateral back in the area of clinical concern was performed. Multiple grayscale and color Doppler images were obtained. COMPARISON: CT abdomen/pelvis 05/15/2015. FINDINGS: These images show subcutaneous fat and musculature in a normal distribution. Mildly hyperechoic soft tissue mass measures 4 x 5 x 6 mm. No calcifications. No increased vascularity on color Doppler interrogation.No hernia. No foreign bodies identified. Procedure Note Interface, Rad/Mammog In - 12/15/2018 11:46 AM BIOMATHEMATICIAN HISTORY: subcutaneous mass on the left lateral back/flank located a few cm's inferior to her incisional scar in that same area TECHNIQUE: Directed sonographic interrogation to the left lateral back in the area of clinical concern was performed. Multiple grayscale and color Doppler images were obtained. COMPARISON: CT abdomen/pelvis 05/15/2015. FINDINGS: These images show subcutaneous fat and musculature in a normal distribution. Mildly hyperechoic soft tissue mass measures 4 x 5 x 6 mm. No calcifications. No increased vascularity on color Doppler interrogation. No hernia. No foreign bodies identified. IMPRESSION IMPRESSION: Subcutaneous lipoma or focal fat infarction in the area of clinical concern. Signed By: Taylor Larkin, 12/15/2018 11:41 AM Performing Organization Address City/State/Zipcode Phone Number SMS * TRANSTHORACIC ECHO (TTE) (11/28/2018 7:38 AM BIOMATHEMATICIAN) TRANSTHORACIC Transthoracic SMS ECHO (TTE) Echo Report MARK REDD Age:48 Gender: F :1970 Exam Date: 11/28/2018 07:38 Exam Location: [facility] Ordering Phys: ALANNAH HESS(hchd/[place] O) Referring Phys:ALANNAH HESS(hchd/[place] O) Reading Phys:Lisa Ponce MD Fellow Phys: Stephenie Peña M.D. Fellow Phys: [employer] Specialist: Courtney Whiting Reason For Exam: Indications: to evaluate for structural abnormality causing CP/SOB despite normal MPI, Dyspnea, unspecified ICD-9 Codes: R06.00 Exam Type: TRANSTHORACIC ECHO (TTE) Procedure CPT:37605 Addtional CPT: Ht (in): 62 BSA: 1.90HR: 70 Rhythm: Sinus rhythm Wt (lb): 176BP: 183/ 70 Technical Quality: Adequate History: MEASUREMENTS Normal ranges based on 95% confidence intervals for adults, some normal patients may fall outside of this range especially when indexing for BSA 2D ECHO LV Diastolic Diameter PLAX4.6 cm 4.2-5.8 (M) / 3.8-5.2 (F) LV Systolic Diameter PLAX 3.9 cm 2.5-4.0 (M) / 2.2-3.5 (F) LV Fractional Shortening PLAX 15.2 % IVS Diastolic Thickness 0.61 cm 0.6-1.0 (M) / 0.6-0.9 (F) LVPW Diastolic Thickness0 .61 cm 0.6-1.0 (M) / 0.6-0.9 (F) LV Relative Wall Thickness0.26 <=0.42 LVOT Diameter 1.7 cm Aortic Root Diameter 2.4 cm LA Systolic Diameter LX 3.1 cm LA Ao Ratio 1.3 LV Diastolic Volume MOD 4C146 cm LV Systolic Volume MOD 4C 57.3 cm LA Volume 84.8 cm LA Volume Index 44.6 cm/m 16 - 34 cm/m RV Diastolic Basal Diameter 3.5 cm 2.5 - 4.1 cm LV Mass by linear certaf12 g LV Mass by linear method Index43.7 g/m Ascending Aorta Diameter2. 8 cm RA Volume 36.4 cm RA Volume Index 19.1 cm/m DOPPLER LVOT Peak Velocity 126 cm/s LVOT Peak Gradient 6.4 mmHg LVOT Mean Velocity 86.2 cm/s LVOT Mean Gradient 3 mmHg LVOT Velocity Time Integral 26.8 cm LVOT Stroke Volume 59.6 cm Mitral E Point Velocity 96.8 cm/s Mitral A Point Velocity 68.9 cm/s Mitral E to A Ratio 1.4 TR Peak Velocity 307 cm/s TR Peak Gradient 37.8 mmHg LV E' Lateral Velocity 11.5 cm/s Mitral E to LV E' Lateral Ratio 8.4 LV E' Septal Velocity 7.2 cm/s Mitral E to LV E' Septal Ratio13.5 FINDINGS Left Ventricle Poor endocardial visualization. Mildleft ventricular dilatation.. Normal left ventricular systolic function. Left ventricular ejection fraction is 65%. Poor endocardial border definition, short axis views sugget inferior wall motion abnormalities, recommend contrast in future. There are no regional wall motion abnormalities , impaired relaxation, mildly elevated LV filling pressures. Right Ventricle Right ventricle not well visualized. Grossly normal right ventricular size and function. Right Atrium Normal right atrial size. Left Atrium Moderate left atrial dilatation. IAS Mitral Valve Mild thickening of the mitral valve. Aortic Valve The aortic valve is trileaflet and opens well. Tricuspid Valve Tricuspid valve not well visualized. Grossly normal tricuspid valve. Incomplete TR jet, but estimated pulmonary artery systolic pressure estimated to be at least 43 mmHg assuming a RA pressure of 5 mmHg. Pulmonic Valve Pulmonic valve not well visualized. Pericardium No pericardial effusion. Aorta Aortic root and proximal ascending aorta not well visualized. Grossly normal size aortic root and proximal ascending aorta. IVC IVC is normal in size. Estimated RA pressure is 5 mmHg. CONCLUSIONS Poor endocardial visualization. Mildleft ventricular dilatation.. Normal left ventricular systolic function. Left ventricular ejection fraction is 65%. Poor endocardial border definition, short axis views sugget inferior wall motion abnormalities, recommend contrast in future. There are no regional wall motion abnormalities , impaired relaxation, mildly elevated LV filling pressures. Moderate left atrial dilatation. Right ventricle not well visualized. Grossly normal right ventricular size and function. . Incomplete TR jet, but estimated pulmonary artery systolic pressure estimated to be at least 43 mmHg assuming a RA pressure of 5 mmHg. No prior study for comparison.Patient to be scheduled to return for contrast Lisa Ponce MD (Electronically Signed) Final Date:28 November 2018 11:45 2D ECHO LV Diastolic Diameter PLAX4.6 cm 4.2-5.8 (M) / 3.8-5.2 (F) LV Systolic Diameter PLAX 3.9 cm 2.5-4.0 (M) / 2.2-3.5 (F) LV Fractional Shortening PLAX 15.2 % IVS Diastolic Thickness 0.61 cm 0.6-1.0 (M) / 0.6-0.9 (F) LVPW Diastolic Thickness0 .61 cm 0.6-1.0 (M) / 0.6-0.9 (F) LV Relative Wall Thickness0.26 <=0.42 LVOT Diameter 1.7 cm Aortic Root Diameter 2.4 cm LA Systolic Diameter LX 3.1 cm LA Ao Ratio 1.3 LV Diastolic Volume MOD 4C146 cm LV Systolic Volume MOD 4C 57.3 cm LA Volume 84.8 cm LA Volume Index 44.6 cm/m 16 - 34 cm/m RV Diastolic Basal Diameter 3.5 cm 2.5 - 4.1 cm LV Mass by linear g LV Mass by linear method Index43.7 g/m Ascending Aorta Diameter2. 8 cm RA Volume 36.4 cm RA Volume Index 19.1 cm/m DOPPLER LVOT Peak Velocity 126 cm/s LVOT Peak Gradient 6.4 mmHg LVOT Mean Velocity 86.2 cm/s LVOT Mean Gradient 3 mmHg LVOT Velocity Time Integral 26.8 cm LVOT Stroke Volume 59.6 cm Mitral E Point Velocity 96.8 cm/s Mitral A Point Velocity 68.9 cm/s Mitral E to A Ratio 1.4 TR Peak Velocity 307 cm/s TR Peak Gradient 37.8 mmHg LV E' Lateral Velocity 11.5 cm/s Mitral E to LV E' Lateral Ratio 8.4 LV E' Septal Velocity 7.2 cm/s Mitral E to LV E' Septal Ratio13.5 Performing Organization Address City/State/[facility] Phone Number SMS * MYOCARDIAL PERFUSION SPECT REST/STRES SINGLE (10/21/2018 1:20 PM BIOMATHEMATICIAN) [facility] Signature MYOCARDIAL Myocardial Perfusion SMS PERFUSION SPECT Report REST/STRES MARK REDD Age:48Gender: F :1970 Exam Date: 10/21/2018 13:05 Exam Location:[facility] Ordering Phys: ALANNAH HESS Referring Phys: Reading Phys:Rosy Luz MD Fellow Phys: Cuco Salgado M.D. Fellow Phys: Isrrael Hugo M.D. Resident: Technologist: Josefa Peck Reason For Exam: Indications: Chest pain, unspecified ICD-9 Codes:R07.9 Exam Type: Myocardial Perfusion Report Procedure CPT: 93971 Additional CPT: BP:/ HR: Risk Factors: Previous Cardiac Procedures: Cardiac History: DM, HTN, HLD Pertinent Meds: Meds past 24 hrs: Pretest Chest Pain: CARDIOLOGY STRESS TEST Pharmacologi Cardiology exercise stress test results pending under separate report. Please look in [facility] under the Procedures Tab in Chart Review. IMAGE PROTOCOLStress Only Radiopharmaceutical Dose (mCi)Duration (min)Img Date Img Time Rest: REST DATE Stress: Tc-99m 13.6 STRESS DATE Tetrofosmin Administration Site:Right antecubital fossa SPECT RESULTS Technical Quality:Adequate Raw Data Analysis: Stress Perfusion Rest Perfusion Summed Stress Score:0 Summed Rest Score: 0 Summed Difference Score: 0 0 - Normal 2 - Abnormal Uptake 4 - Absent 1 - Mildly Reduced Uptake 3 - Severely Reduced Tracer Uptake X - Not Interpretable RV: No evidence of ischemia. FUNCTION (calculated via Gated SPECT) Resting LV EF: % EDV:76 ml(70-100 ml) Post Stress LV EF: 83% TID: ESV:13 ml (30-50 ml) Technical Quality: LV Size & Function: Gated SPECT LVEF is overestimated due to the scintigraphic obliteration of the small left ventricular cavity. Visual analysis indicates that the LVEF is well within the normal range of >54%. LV Regional Function: Normal left ventricular wall motion and thickening. Other Findings: Variable Not Implemented IMPRESSIONS 1. Myocardial perfusion imaging is normal. 2. No scan evidence of ischemia or scar. 3. Overall left ventricular function is normal with normal wall motion. 4. Normal gated SPECT left ventricular ejection fraction of >54%. 5. Normal left ventricular size. 6. No previous study for comparison. 7. Please see ECG report in [facility] for details of tracing interpretation. [place] Control: Do not remove! Rosy Luz MD (Electronically Signed) Final Date:21 October 2018 15:45 Performing Organization Address City/State/Zipcode Phone Number SMS * TREADMILL STRESS-TRACING ONLY (10/21/2018 11:18 AM BIOMATHEMATICIAN) Stress Test [facility] Test Date:2018-10-21 Pat Name: MARK REDD Department: [facility] Room: [facility] Gender: Erisa Attorney: :1970-0 08-01 Requested By: MONTY LUZ Order Number: [id number] Reading MD: Mike Tesfaye M.D. Interpretive Statements ECG PORTION OF PHARMACOLOGIC NUCLEAR STRESS TEST 1. Regadenson 0.4 mg IV was administered 2. The resting heart rate of 62 bpm kj to a maximal heart rate of 108 bpm. The resting blood pressure of 147/60 mmHg , with stress the blood pressure was 150/63mmHg. The exercise test was stopped due to TEST COMPLETED. 3. Pt had no symptoms. 4. Resting ECG with NSR; with stress no ischemic changes were noted. No arrhythmias. 5. Please see results from nuclear stress test from the same date for perfusion data. Electronically Signed On 10-25-2018 8:53:19 BIOMATHEMATICIAN by Mike Tesfaye M.D. Performing Organization Address [facility] Phone Number SMS * POCT URINE DIPSTICK - (10/21/2018 10:14 AM BIOMATHEMATICIAN) Pathologist [facility] present Control negative * TSH (10/21/2018 9:45 AM BIOMATHEMATICIAN) Pathologist [facility] TSH 1.28 0.57 - 3.74 uIU/mL BT MAIN-STATION 1 Specimen Blood Performing Organization Address [facility] Phone Number MISYS BT MAIN-STATION 1 * GLUCOSE POC (10/21/2018 9:25 AM BIOMATHEMATICIAN) Pathologist [facility] Glucose POC 228 (H) 74 - 106 mg/dL BT MAIN-STATION 1 Performing Organization Address [facility] Phone Number MISYS BT MAIN-STATION 1 * LIVER PROFILE (10/21/2018 12:41 AM BIOMATHEMATICIAN) T Protein 6.5 6.0 - 8.3 g/dL BT MAIN-STATION 1 Albumin 3.9 3.7 - 5.3 g/dL BT MAIN-STATION 1 T Bilirubin 0.8 0.2 - 1.2 mg/dL BT MAIN-STATION 1 Alk Phos 123 (H) 34 - 104 U/L BT MAIN-STATION 1 AST 10 (L) 13 - 39 U/L BT MAIN-STATION 1 ALT 19 7 - 52 U/L BT MAIN-STATION 1 D Bilirubin 0.1 0.0 - 0.2 mg/dL BT MAIN-STATION 1 Specimen Blood Performing Organization Address [facility] Phone Number MISYS BT MAIN-STATION 1 * XRAY CHEST 2 VIEWS (10/20/2018 8:13 PM BIOMATHEMATICIAN) Impressions Performed At IMPRESSION: SMS No acute thoracic abnormality. If the report is "FINALIZED" it indicates that the attending/staff radiologist has reviewed the images and agrees with the resident's interpretation. Dictated By: Chiquita Rollins MD, 10/20/2018 8:45 PM I have reviewed the study and agree with the findings in this report. Signed By: Lidia Cason MD, 10/20/2018 11:33 PM Narrative Performed At EXAMINATION:XRAY CHEST 2 VIEWS, Frontal and lateral SMS INDICATION: cp. sob. COMPARISON:Chest x-ray 09/17/2012 FINDINGS: TUBES/LINES:None LUNGS:No consolidations or edema. PLEURA:No effusions or pneumothorax. HEART/MEDIASTINUM:Normal cardiomediastinal silhouette. MUSCULOSKELETAL:No acute findings. UPPER ABDOMEN: Normal Procedure Note Interface, Rad/Mammog In - 10/20/2018 11:38 PM BIOMATHEMATICIAN EXAMINATION: XRAY CHEST 2 VIEWS, Frontal and lateral INDICATION: cp. sob. COMPARISON: Chest x-ray 09/17/2012 FINDINGS: TUBES/LINES: None LUNGS: No consolidations or edema. PLEURA: No effusions or pneumothorax. HEART/MEDIASTINUM: Normal cardiomediastinal silhouette. MUSCULOSKELETAL: No acute findings. UPPER ABDOMEN: Normal IMPRESSION IMPRESSION: No acute thoracic abnormality. If the report is "FINALIZED" it indicates that the attending/staff radiologist has reviewed the images and agrees with the resident's interpretation. Dictated By: Chiquita Rollins MD, 10/20/2018 8:45 PM I have reviewed the study and agree with the findings in this report. Signed By: Lidia Cason MD, 10/20/2018 11:33 PM Performing Organization Address [facility] Phone Number [facility] * TROPONIN I POC (10/20/2018 7:46 PM BIOMATHEMATICIAN) Only the most recent of 3 results within the time period is included. Troponin POC 0.00 0.00 - 0.08 ng/mL BT MAIN-STATION 1 Performing Organization Address [facility]/Zipcode Phone Number MISYS BT MAIN-STATION 1 * 12 LEAD EKG (10/20/2018 7:42 PM BIOMATHEMATICIAN) 12 LEAD EKG FOR [facility] Test Date:2018-10-20 Pat Name: MARK REDD Department: 5520 Room: Gender: F Erisa Attorney: [id number] :[birth year] Requested By: MARK Cohen Order Number: [id number] Reading MD: kevin norton Measurements Intervals [place] Rate: 67 P:52 SC: 149 QRS: 17 QRSD: 83 T:29 QT: 403 QTc:426 Interpretive Statements SINUS RHYTHM Electronically Signed On 10-20-2018 20:12:39 BIOMATHEMATICIAN by kevin norton Performing Organization Address [facility] Phone Number SMS * 12 LEAD EKG (10/20/2018 5:03 PM BIOMATHEMATICIAN) 12 LEAD EKG FOR [facility] Test Date:2018-10-20 Pat Name: MARK REDD Department: 5520 Room: Gender: F Erisa Attorney: [id number] :[id number] Requested By: MARK Cohen Order Number: [id number] Reading MD: Carine Bach M.D. Measurements Intervals [place] Rate: 55 P:43 SC: 152 QRS: 2 QRSD: 85 T:28 QT: 416 QTc:399 Interpretive Statements SINUS BRADYCARDIA MINIMAL VOLTAGE CRITERIA FOR LVH, CONSIDER NORMAL VARIANT Electronically Signed On 10-20-2018 18:36:27 BIOMATHEMATICIAN by aCrine Bach M.D. Performing Organization Address City/[facility] Phone Number SMS * HIV-1/HIV-2 ROUTINE SCREENING (10/20/2018 2:30 PM BIOMATHEMATICIAN) HIV-1/HIV-2 Negative NEG BT MAIN-STATION 3 Performing Organization Address City/[facility] Phone Number MISYS BT MAIN-STATION 3 * BMP POC (10/20/2018 2:25 PM BIOMATHEMATICIAN) CO2 POC 26Comment: Physician Notified 21 - 32 mmol/L BT MAIN-STATION 1 Chloride POC 101 98 - 107 mmol/L BT MAIN-STATION 1 Potassium POC 3.9 3.50 - 5.10 mmol/L BT MAIN-STATION 1 Sodium POC 140 136 - 145 mmol/L BT MAIN-STATION 1 Glucose POC 296 (H) 74 - 106 mg/dL BT MAIN-STATION 1 Urea Nitrogen 13 7 - 18 mg/dL BT MAIN-STATION POC 1 Creatinine POC 0.4 (L) 0.6 - 1.3 mg/dL BT MAIN-STATION 1 Calcium Ionized 1.19 1.15 - 1.29 mmol/L BT MAIN-STATION POC 1 Hemoglobin POC 16.7 (H) 12.0 - 16.0 g/dL BT MAIN-STATION 1 Hematocrit POC 49.0 (H) 37.0 - 47.0 % BT MAIN-STATION 1 GFR, Estimated >60 mL/min/1.73 m2 BT MAIN-STATION 1 GFR, Estim, >60 mL/min/1.73 m2 BT MAIN-STATION Afr-Am 1 Performing Organization Address City/State/Zipcode Phone Number MISYS BT MAIN-STATION 1 * 12 LEAD EKG (10/20/2018 2:08 PM BIOMATHEMATICIAN) [facility] 12 LEAD EKG FOR [facility] Test Date:2018-10-20 Pat Name: MARK REDD Department: 5520 Room: Gender: F Erisa Attorney: [id number] :1970-0 08-01 Requested By: DEONNA Salazar Order Number: [id number] Reading MD: Heather Segovia Measurements Intervals [place] Rate: 58 P:34 SC: 148 QRS: 4 QRSD: 89 T:15 QT: 410 QTc:406 Interpretive Statements SINUS BRADYCARDIA MINIMAL VOLTAGE CRITERIA FOR LVH, CONSIDER NORMAL VARIANT Electronically Signed On 10-20-2018 14:27:03 BIOMATHEMATICIAN by Heather Segovia Performing Organization Address City/State/Zipcode Phone Number [facility] after 03/21/2018 Insurance Type Payer Benefit Subscriber ID Effective Phone Address Plan / Dates Group [employer] [place] [employer] [place] xxxxxxx 2018 [address] [employer] - [id number] PLANN[address] [place], [place] [address] [employer] PLAN [employer]AN xxxxxxx 2018- [phone] [id number] [place] [address] Advance Directives For more information, please contact: [facility] [address] [place] [address] Date Inactivated Comments Code Status Date Activated 10/21/2018 6:58 PM Full Code 10/21/2018 12:12 AM
--- NOTE | 2019-03-22 14:42 | NUR ---
RECEIVED PT FROM TRIAGE INTO ER 10. PT AMBULATORY WITH STEADY GAIT
[2019-03-22] MEDS ORDERED: CLONIDINE HCL 0.1 MG TAB PO ONE (14:45)
[2019-03-22 15:14] LABS: BASOPHILS % 0.2 % (0.0-1.0); EOSINOPHILS % 0.7 % (0.0-6.0); HEMATOCRIT 42.2 % (34.2-44.1); HEMOGLOBIN 14.3 g/dL (12.0-16.0); LYMPHOCYTES # (AUTO) 1.9 (1.0-3.2); LYMPHOCYTES % 32.4 % (18.0-39.1); MEAN CORPUSCULAR HEMOGLOBIN 29.1 pg (28-32); MEAN CORPUSCULAR HGB CONC 33.9 g/dL (31-35); MEAN CORPUSCULAR VOLUME 85.8 fL (81-99); MONOCYTES # (AUTO) 0.4 (0.2-0.8); MONOCYTES % 7.5 % (4.4-11.3); NEUTROPHILS # (AUTO) 3.5 (2.1-6.9); NEUTROPHILS % 58.9 % (38.7-80.0); PLATELET COUNT 223 x10e3/uL (140-360); RED BLOOD COUNT 4.92 x10e6/uL (3.6-5.1); RED CELL DISTRIBUTION WIDTH 12.1 % (11.7-14.4)
[2019-03-22 15:27] LABS: ANION GAP 13.8 mmol/L (8-16); BLOOD UREA NITROGEN 14 mg/dL (7-26); BUN/CREATININE RATIO 16 (6-25); CALCIUM 10.3 mg/dL (8.4-10.2); CARBON DIOXIDE 26 mmol/L (22-29); CHLORIDE 98 mmol/L (98-107); CREATININE, SERUM 0.85 mg/dL (0.57-1.11); EST GLOMERULAR FILTRATION RATE > 60 ML/MIN (60-); POTASSIUM 3.8 mmol/L (3.5-5.1); SODIUM 134 mmol/L (136-145)
[2019-03-22 15:29] LABS: GLUCOSE 470 mg/dL (74-118)
--- NOTE | 2019-03-22 15:58 | NUR ---
PT AMBULATED TO THE RESTROOM WITH STEADY GAIT. SON REMAINS AT BEDSIDE. NO SIGNIFICANT CHANGES SINCE LAST ROUNDING
[2019-03-22] MEDS ORDERED: INSULIN LISPRO 100 UNIT/1 ML 3ML VIAL SQ STA (16:11)
[2019-03-22] MEDS ORDERED: INSULIN REGULAR, HUMAN 100 UNIT/1 ML 3ML VIAL IV ONE (16:15)
--- NOTE | 2019-03-22 17:51 | Diagnostic Imaging Report ---
History:Mastoiditis Comparison studies:None Technique: Axial, coronal and sagittal images through the temporal bones with IV contrast. Intravenous contrast: 100 cc of Isovue. Dose modulation, iterative reconstruction, and/or weight based adjustment of the mA/kV was utilized to reduce the radiation dose to as low as reasonably achievable. Findings: Right: External auditory canal: Clear and patent Tympanic membrane: Barely visualized and unremarkable. Middle ear and mastoid cavities: Clear. Mastoid air cells: Clear [place]: The malleus, incus and stapes are grossly intact. Cochlea, vestibule, internal acoustic canals: Grossly intact. Semicircular canals: Grossly intact. Not dehiscent. Endolymphatic duct: Normal in size. No dilated. Petrous apex: Unremarkable, not aerated. Facial canal: No abnormalities in the labyrinthine, tympanic or mastoid segments. Left: External auditory canal: Clear and patent Tympanic membrane: Barely visualized and unremarkable. Middle ear and mastoid cavities: Clear. Mastoid air cells: Clear [place]: The malleus, incus and stapes are grossly intact. Cochlea, vestibule, internal acoustic canals: Grossly intact. Semicircular canals: Grossly intact. Not dehiscent. Endolymphatic duct: Normal in size. No dilated. Petrous apex: Unremarkable, not aerated. Facial canal: No abnormalities in the labyrinthine, tympanic or mastoid segments. Retropharyngeal course of the left ICA incidentally noted Hypoplastic and patent left transverse and sigmoid sinuses. Patent right sigmoid sinus IMPRESSION: Right temporal bone: 1. No abnormality Left temporal bone: 1. No abnormality Signed by: DR Edwar Granda M.D. on 03/22/2019 5:48 PM
[2019-03-22] MEDS ORDERED: SODIUM CHLORIDE 0.9% 50ML 50 ML ONE (18:29)
[2019-03-22] MEDS ORDERED: IOPAMIDOL 370 MG/ML 200 ML INFUS..BTL INJ ONE (18:29)
[2019-03-22] MEDS ORDERED: ULTRAM50 MG PO (18:59)
[2019-03-22] MEDS ORDERED: HYDROCODONE/APAP 5MG-325MG TAB PO ONE (19:00)
== END 2019-03-22 20:19 | disposition home or self-care (01) ==
LOC: ER 14:18
DX: H92.02 Otalgia, left ear (principal); I10 Essential (primary) hypertension; E78.5 Hyperlipidemia, unspecified; Z82.49 Family history of ischemic heart disease and other diseases of the circulatory system; E09.65 Drug or chemical induced diabetes mellitus with hyperglycemia; T38.0X5A Adverse effect of glucocorticoids and synthetic analogues, initial encounter
CPT/HCPCS: 36415; 70481; 80048; 82948; 85025; 99284; Q9967